=== PATIENT | female | born 1980 | race African-American/Black ===

== ENCOUNTER → 2018-06-17 | Outpatient (CLI) | payer BC | LOC: RAD 12:13 | DX: Z12.31 Encounter for screening mammogram for malignant neoplasm of breast (principal) ==

== ENCOUNTER → 2021-08-15 | Outpatient (CLI) | payer BC, OTHER | LOC: RAD 09:56 | PROVIDERS: ATTEND Family Medicine | DX: Z12.31 Encounter for screening mammogram for malignant neoplasm of breast (principal) ==

== ENCOUNTER → 2021-08-27 | Outpatient (CLI) | payer BC, OTHER | LOC: ULTRA 08:49 | PROVIDERS: ATTEND Family Medicine | DX: R10.11 Right upper quadrant pain (principal) ==